=== PATIENT | male | born 1950 | race Caucasian/White ===

== ENCOUNTER 2018-01-14 16:29 | Emergency (ER) | payer OTHER ==
--- NOTE | 2018-01-14 17:49 | RAD ---
RIGHT SHOULDER: THREE VIEWS 01/14/18 HISTORY: Right shoulder and arm pain. Injury to right arm with pain. Mild degenerative change at the glenohumeral joint. Mild degenerative changes at the AC joint. No fra cture or dislocation identified. IMPRESSION: No acute abnormality identified. POS: [facility]
[2018-01-14] MEDS ORDERED: Ketorolac Tromethamine 60 MG/2 ML VIAL ONE (18:26)
== END 2018-01-14 19:04 | disposition home or self-care (01) ==
LOC: ERS 16:29
DX: M25.511 Pain in right shoulder (principal); I25.2 Old myocardial infarction; I10 Essential (primary) hypertension; E11.40 Type 2 diabetes mellitus with diabetic neuropathy, unspecified; F43.10 Post-traumatic stress disorder, unspecified; F17.210 Nicotine dependence, cigarettes, uncomplicated; Z86.73 Personal history of transient ischemic attack (TIA), and cerebral infarction without residual deficits
CPT/HCPCS: 96372; J1885

== ENCOUNTER 2018-12-14 07:36 | Outpatient (CLI) | payer OTHER ==
--- NOTE | 2018-12-14 09:15 | CT ---
CT THORAX WITHOUT IV CONTRAST: INDICATIONS: Personal history of smoking for 50+ years. History of colon cancer, appendectomy, colon resection, r otator cuff repair, left knee surgery, and left inguinal umbilical hernia repair. COMPARISON: Prior CT thorax with contrast, dated 08/30/2015, from the [facility]. TECHNIQUE: CT with low dose lung cancer screening protocol. FINDINGS: No suspicious pulmonary nodule is evident. There is a calcified granuloma in the left lower lobe, as well as within the left upper lobe. There are coronary artery and thoracic aortic calcifications. There is a stable 1.5 cm left adrenal adenoma. There is stable posttraumatic deformity involving the left chest wall. There is scattered degenerati ve and osteoarthritic change. IMPRESSION: 1. Lung-RADS category 1-Negative. No suspicious pulmonary nodule is evident. Recommend routine kimi ual low dose lung cancer screening CT in one year. 2. Category S-Stable findings of prior granulomatous disease. Posttraumatic deformity of the left c hest wall. Stable left adrenal adenoma. POS: [facility]
== END 2018-12-14 07:37 | disposition home or self-care (01) ==
LOC: CT 07:36
DX: Z72.0 Tobacco use (principal)
CPT/HCPCS: G0297

== ENCOUNTER 2019-01-18 14:52 | Emergency (ER) | payer OTHER, SELFPAY ==
--- NOTE | 2019-01-18 16:40 | RAD ---
RADIOGRAPH CHEST 2 VIEWS: 01/18/19 HISTORY: 68-year-old male with chest pain. FINDINGS: The thoracic aorta is tortuous and ectatic. There is no evidence of air space density, pneumothorax, or pulmonary edema. There is no cardiomegaly or pleural effusion. Multiple old left rib fractures. No major interval change since 12/01/18. IMPRESSION: 1) No acute cardiopulmonary findings. 2) Ectasia of thoracic aorta. 3) Numerous old, significantly displaced, traumatic, left rib fracture deformities. jn [] POS: [facility]
--- NOTE | 2019-01-21 15:14 | EKG ---
Test Reason : CP Blood Pressure : / mmHG Vent. Rate : 076 BPM Atrial Rate : 076 BPM P-R Int : 140 ms QRS Dur : 094 ms QT Int : 392 ms P-R-T Axes : 038 020 -08 degrees QTc Int : 441 ms Normal sinus rhythm Nonspecific ST abnormality Abnormal ECG Confirmed by HORACIO NAYLOR ([id number]), editor producer MICAELA PASTOR ([id number]) on 01/21/2019 3:13:28 PM Referred By: Confirmed By:HORACIO NAYLOR
== END 2019-01-18 16:50 | disposition home or self-care (01) ==
LOC: ERS 14:52
DX: R07.81 Pleurodynia (principal); R05 Cough; I25.10 Atherosclerotic heart disease of native coronary artery without angina pectoris; E11.9 Type 2 diabetes mellitus without complications; I10 Essential (primary) hypertension; F43.10 Post-traumatic stress disorder, unspecified; F17.210 Nicotine dependence, cigarettes, uncomplicated; Z79.899 Other long term (current) drug therapy; Z79.84 Long term (current) use of oral hypoglycemic drugs
CPT/HCPCS: 71046; 93005

== ENCOUNTER 2019-03-04 11:47 | Inpatient (IN) | payer OTHER, MEDICARE ==
--- NOTE | 2019-03-04 12:24 | CT ---
EXAM: CT brain without contrast HISTORY: Severe headache status post TPA COMPARISON: 03/04/2019 TECHNIQUE: Multiple contiguous axial images were obtained and a CT of the brain without contrast. FINDINGS: There are scattered hypodensities in the subcortical and periventricular white matter consi stent with small vessel ischemic disease. There is no evidence of hydrocephalus, intracranial hemorrhage, or extra-axial fluid collection. The calvarium and overlying soft tissues are unremarkable. The visualized paranasal sinuses and masto id air cells are well aerated. IMPRESSION: No evidence of acute intracranial abnormality
[2019-03-04] MEDS ORDERED: Acetaminophen 500 MG TAB ONE (12:32)
--- NOTE | 2019-03-04 12:34 | RAD ---
EXAM: Single view of the chest HISTORY: Altered mental status COMPARISON: 02/11/2015 FINDINGS: Single view of the chest shows a normal sized cardiomediastinal silhouette. Increased inte rstitial lung markings are present. There is no evidence of consolidation, mass, or pleural effusion. Degenerative changes are seen in the spine. IMPRESSION: No evidence of acute cardiopulmonary disease
[2019-03-04 13:06] LABS: Acetaminophen Less than 6.0 mcg/mL (10.0-30.0); Alcohol Less than 10 mg/dL (Less than 10); CK (CPK) 87 U/L (30-200); Lipase 136 U/L (8-78); Salicylate Less than 8.0 mg/dL (15.0-30.0)
[2019-03-04] MEDS ORDERED: Insulin Regular 300 UNITS/3 ML VIAL SC PRN (13:23)
[2019-03-04] MEDS ORDERED: Labetalol HCl 100 MG/20 ML VIAL SLOW IVP PRN (13:23)
[2019-03-04] MEDS ORDERED: Bisacodyl 5 MG TAB PO PRN (13:23)
[2019-03-04] MEDS ORDERED: niCARdipine 25 MG in Sodium Chloride 0.9% 250 ML 250 ML IVPB PRN (13:23)
[2019-03-04] MEDS ORDERED: Communication Order-Pharmacy FS ONE (13:23)
[2019-03-04] MEDS ORDERED: Acetaminophen 325 MG TAB PO PRN (13:23)
[2019-03-04] MEDS ORDERED: Ondansetron PF 4 MG/2 ML Vial IVP PRN (14:10)
[2019-03-04] MEDS ORDERED: Ondansetron ODT 4 MG TAB SL PRN (14:10)
[2019-03-04] MEDS ORDERED: Sodium Chloride 0.9% 1,000 ML IV SCH (14:15)
--- NOTE | 2019-03-04 15:28 | HP ---
PRIMARY CARE PROVIDER: Dr. Leyda Ayala at [facility] in [place]. CHIEF COMPLAINT: Weakness. HISTORY OF PRESENT ILLNESS: Mr. Taylor is a pleasant 68-year-old gentleman, who was seen at [facility] following transfer from [facility]. He reports that he was at work around 9:00 a.m. today when he had upper body spasms. He felt like he was "feeling in and out." He also reports weakness in his right foot and right leg. The weakness was on and off and had resolved by the time I saw him. He also reports right-sided headache, sharp, 8/10, nonradiating, not accompanied by nausea, no known aggravating or relieving factors. The patient was airlifted to [facility]. On the way to the emergency room from the critical access hospital, he reportedly had upper body spasms. He describes that the spasms were exactly like the one that he had earlier today at [place]. REVIEW OF SYSTEMS: All other systems were reviewed and found to be negative. PAST MEDICAL HISTORY: Coronary artery disease, diabetes mellitus type 2, hypertension, colon cancer, and CVA x4. PAST SURGICAL HISTORY: Appendectomy, hernia repair, left knee surgery, right rotator cuff surgery, colon cancer surgery. PAST PSYCHIATRIC HISTORY: PTSD. SOCIAL HISTORY: The patient reports marijuana use. He smokes one pack of cigarettes a day. He denies alcohol use. FAMILY HISTORY: No family history of cerebrovascular accident. CODE STATUS: I discussed his code status. He is full code. Surrogate decision maker is his . ALLERGIES: BENADRYL, CIPROFLOXACIN, AND SULFA. CURRENT MEDICATIONS: 1. Pravastatin 80 mg daily. 2. Citalopram 40 mg daily. 3. Plavix 75 mg daily. 4. Doxepin 50 mg daily. 5. Hydrochlorothiazide 25 mg daily. 6. Lorazepam 2 mg 2 times a day. 7. Metformin 1000 mg 2 times a day. 8. Naproxen 375 mg 2 times a day. PHYSICAL EXAMINATION: GENERAL: On examination, Mr. Taylor is awake and alert, not in acute distress. VITAL SIGNS: Blood pressure is 120/74, pulse 62, respiratory rate 14, and oxygen saturation 97% on room air. He is afebrile. EYES: No scleral icterus, no conjunctival pallor. ENT: Moist mucosal membranes. No oropharyngeal erythema or exudates. NECK: Supple, nontender, bowel sounds are heard. RESPIRATORY: Accessory muscles of breathing are not active. Chest wall movements are symmetric bilaterally. Lungs are clear to auscultation without wheeze, rhonchi, or crepitations. CARDIOVASCULAR: S1 and S2 are heard, regular. Peripheral pulses palpable. ABDOMEN: Soft, nontender, bowel sounds are heard. NEUROLOGIC: Cranial nerves 2 through 12 are intact. There are no focal motor or sensory deficits. Power is 5/5 in all 4 extremities. Deep tendon reflexes 2+, plantars are downgoing bilaterally. MUSCULOSKELETAL: Power is 5/5 in all 4 extremities. SKIN: No rashes or subcutaneous nodules. LYMPHATIC: No cervical lymphadenopathy. PSYCHIATRIC: Normal mood, normal affect, the patient is oriented to person, place, and time. LABORATORY DATA: Mr. Taylor's labs and investigations were reviewed. I reviewed his electrocardiogram, which shows normal sinus rhythm, no ST changes to suggest an acute coronary syndrome. Reviewed his chest x-ray, which does not show any pulmonary infiltrates. He had noncontrast CT scan of the brain, which did not show any evidence of acute intracranial abnormality. CT [place] angiography with contrast did not show any evidence of hemodynamically significant stenosis of either internal carotid artery. He also had normal intracranial circulation. Urine toxicology screen was positive for cannabinoids. He has leukocytosis with 11, 600 white cells, of which 66% are neutrophils, normal hemoglobin, normal platelet count, INR 1.0, unremarkable comprehensive metabolic profile with a creatinine of 0.86. ASSESSMENT AND PLAN: Mr. Taylor is a pleasant 68-year-old gentleman, who was seen at [facility] on March 04, 2019. His problem list includes: 1. Acute ischemic stroke: Mr. Taylor is presenting with acute ischemic stroke. He has received tPA at [place]. He will be admitted to the hospital here for further management. He will be admitted to CCU and Neurology Service will be consulted. Post tPA protocol will be followed. He will have a repeat CT of the brain as well as MRI of the brain. We will also obtain 2D echocardiogram. He already had CT angiogram of the neck at [place]. 2. Diabetes mellitus type 2: We will start the patient on Accu-Cheks and insulin sliding scale. 3. Coronary artery disease: This appears to be stable at this time. He denies any chest pain. 4. Hypertension: We will monitor vital signs and titrate antihypertensives as needed. 5. Tobacco abuse: The patient has been counseled regarding tobacco cessation. Many thanks for allowing me to participate in your patient's care. Please feel free to contact me with any questions or concerns. Job ID: [id number] [id number]
[2019-03-04] MEDS: Nicotine 21 MG PATCH TD SCH (15:33)
[2019-03-04 15:47] VITALS: BMI 25.1
[2019-03-04] MEDS: Morphine 4 MG/ML VIAL SLOW IVP PRN ×2 (16:50→21:01)
--- NOTE | 2019-03-04 17:40 | CON ---
DATE OF CONSULTATION: 03/04/2019 SERVICE: Pulmonary Medicine. REASON FOR CONSULTATION: ICU patient. HISTORY OF PRESENT ILLNESS: The patient is a 68-year-old white male with past medical history significant for [address], he really does not have much in the way of debility. He indicates that the only issue that he has is that sometimes he has some lack of flexibility in his biceps muscles making it difficult for him to extend his arms. That being said, he had an abrupt onset of right arm and leg weakness with some lack of feeling in the right side of his face. He presented to the emergency department. A CT of the head was performed, which did not demonstrate any significant abnormalities. He subsequently got a dose of tPA. He has been tucked into the ICU. At this point, he has near resolution in all neurologic symptoms. This was an abrupt onset of symptoms. He has no shortness of breath, chest pain, fevers, chills, nausea, or vomiting that precipitated these events. He did have a little bit of a headache that started at 11 this morning. PAST MEDICAL HISTORY: 1. Coronary artery disease. 2. Type 2 diabetes mellitus. 3. Hypertension. 4. Colon cancer. 5. History of CVA x4. 6. Obstructive sleep apnea, not able to tolerate noninvasive therapy, currently using oxygen only at night. PAST SURGICAL HISTORY: 1. Appendectomy. 2. Herniorrhaphy. 3. Left knee surgery. 4. Right rotator cuff surgery. 5. Colon cancer surgery. SOCIAL HISTORY: He uses marijuana. He smokes a pack of cigarettes on a daily basis and has greater than 40 pack-year history of smoking. Denies any alcohol or illicit drug use. He has no exposure to chemicals, dust, asbestos, or tuberculosis. FAMILY HISTORY: Noncontributory. ALLERGIES: BENADRYL, CIPRO, AND SULFA. MEDICATIONS: List of his inpatient medications was reviewed. No specific updates were made at this time. REVIEW OF SYSTEMS: General, head, ears, eyes, nose, throat, cardiovascular, respiratory, GI, , musculoskeletal, neurologic, and skin is negative except as mentioned in the HPI. PHYSICAL EXAMINATION: VITAL SIGNS: Afebrile, pulse 58, blood pressure 141/80, respirations 16, and saturation 96% on room air. GENERAL: The patient is awake and alert, in no apparent distress. LUNGS: Good air entry. There is a prolonged expiratory phase. That being said, I do not appreciate any rhonchi or crackles. Wheezing is minimal. HEART: Normal rate and regular. ABDOMEN: Soft, nontender, and nondistended. Bowel sounds are positive. MUSCULOSKELETAL: No cyanosis or clubbing. No pitting in the bilateral lower extremities. NEUROLOGIC: Grossly nonfocal. LABORATORY DATA: WBC 11.6, hemoglobin 14.8, and platelets 349,000. INR 1.0. Comprehensive metabolic profile is unremarkable. He has negative troponin x2. CK is normal. Ammonia is normal. Lipase is less than twice the upper limits of normal. TSH is normal and prolactin is also normal. Salicylates, acetaminophen, plasma alcohol are all unremarkable. IMAGING STUDIES: CT of the brain demonstrates no acute intracranial abnormality. Chest x-ray demonstrates no acute cardiopulmonary abnormality. CT [place] demonstrates no obstructive lesions. ASSESSMENT: 1. Cerebrovascular accident, possible, status post tPA. 2. Obstructive sleep apnea, previously not able to tolerate noninvasive therapy. 3. Type 2 diabetes mellitus. DISCUSSION AND PLAN: We will watch the patient in the ICU closely with frequent neurologic checks. If he stable from a neurologic perspective, he will be ready for transition out of the ICU to the telemetry or to the stroke unit in the morning. He is being monitored on telemetry. I will follow in this location, but when he leaves the ICU, he will have no further requirements for inpatient Pulmonary Critical Care opinion, and I will sign off. Job ID: [id number]
[2019-03-04] MEDS ORDERED: Atorvastatin Calcium 40 MG TAB PO SCH (21:00)
--- NOTE | 2019-03-04 21:24 | CON ---
DATE OF CONSULTATION: 03/04/2019 CHIEF COMPLAINT: The patient gave us medical history. The patient was in his usual state of health and he was at work around 9:00 am yesterday and he had right-sided facial, arm, and leg weakness and it was on and off and currently, he has improved significantly. The patient reports he had slurred speech. He was a bit disoriented. Even now, he has cold flashes and hot flashes. PREVIOUS MEDICAL HISTORY: Positive for coronary artery disease, diabetes, hypertension, colon cancer in 2010. PAST SURGICAL HISTORY: Appendectomy, hernia repair, left knee surgery, right rotator cuff surgery, colon cancer surgery. PAST PSYCHIATRIC HISTORY: Positive for PTSD. SOCIAL HISTORY: He does use marijuana. Smokes one pack per day. No alcohol. FAMILY HISTORY: Mother in her 70s, she had diabetes and CVA. Father at 69, he collapsed. Brother after [employer] exposure. One sister . He still has a brother and sister alive. He has no children. ALLERGIES: HE IS ALLERGIC TO BENADRYL, CIPRO, AND SULFA. MEDICATIONS: At home reviewed. He takes: 1. Pravastatin. 2. Citalopram. 3. Plavix. 4. Doxepin. 5. Hydrochlorothiazide. 6. Lorazepam. 7. Metformin. 8. Naproxen. REVIEW OF SYSTEMS: PULMONARY: Negative for cough or shortness of breath. GI: Negative for nausea, vomiting, or diarrhea. NEUROLOGIC: Positive for right-sided weakness. DERMATOLOGICAL: Negative for any rash. HEMATOLOGIC: Negative for bleeding diathesis or anemia. ENDOCRINE: Positive for diabetes. LABORATORY WORKUP: White count is 11.6, RBC 5.13, hemoglobin 14.8, hematocrit 44.8, platelet count 349. Chemistries; potassium 3.7, sodium 140, chloride 100, bicarb 27, BUN 12, creatinine 0.86, prolactin 6.16. Urine is negative for leukocyte esterase. Urine tox is positive for opiates and cannabinoids. His MRI is currently pending. CT of the head showed no evidence of acute intracranial abnormalities. PHYSICAL EXAMINATION: VITAL SIGNS: Temperature 98, his blood pressure was 141/85, pulse is 64, respiratory rate 16. GENERAL APPEARANCE: Well-built, well-nourished man, who appears comfortable in bed. CHEST: Clear vesicular breathing. CARDIOVASCULAR: S1 and S2 heard. No murmurs. ABDOMEN: Soft. NEUROLOGICAL: Higher intellectual functions; normal orientation to time, place, and person. Cranial nerves; pupils 3 mm, reactive to light. Normal extraocular movements. No facial asymmetry noted. Normal sensation of face bilaterally. Tongue midline. No atrophy noted. Normal elevation of palate. Hearing normal. Motor; bulk normal, tone normal. Strength 5/5 throughout except in the right lower extremity. Lower extremity strength was 4/5. Muscle groups tested deltoid, biceps, triceps, wrist extension and flexion, finger extension and flexion and iliopsoas, hamstrings, quadriceps, ankle dorsiflexion, plantar flexion bilaterally. Deep tendon reflexes 1+ throughout. Cerebellar, normal [id number]. Sensory normal to touch. IMPRESSION: The patient is a 68-year-old gentleman who seems to have had a right-sided weakness yesterday when he was outside at work and his examination currently shows mild right lower extremity weakness, likely secondary to acute stroke. His stroke risk factors are coronary artery disease, diabetes, hypertension, and family history of stroke and at this time, likely diagnosis is most consistent with acute cerebrovascular accident. RECOMMENDATIONS: Please complete his MRI of the brain. Add full-dose aspirin to Plavix for now for protection and obtain echocardiogram and lipid profile as part of workup for stroke. His CT angiography was also reviewed and it was negative for any stenosis at this time, so I will follow up the patient with you. Job ID: [id number]
[2019-03-05] MEDS: Morphine 4 MG/ML VIAL SLOW IVP PRN ×2 (01:40→08:07)
--- NOTE | 2019-03-05 09:11 | CT ---
CT Brain WO Con HISTORY: CVA. The patient is status post TPA. COMPARISON: Prior day's exam. FINDINGS: There is generalized ventricular and sulcal prominence. Decreased attenuation to the perive ntricular white matter is noted with slightly asymmetric white matter changes on the left but not a definitive acute infarct. No hemorrhage or mass effect. Stable overall exam. The mastoid air cells are clear there is mild ethmoid air cell mucosal change. IMPRESSION: No acute intracranial abnormalities. Stable exam.
--- NOTE | 2019-03-05 09:44 | PRG ---
DATE OF SERVICE: 03/05/2019 SERVICE: Pulmonary Medicine. INTERVAL HISTORY: The patient is breathing comfortably. He has no complaints of chest pain, fevers, or chills. I find him in good spirits. He has a cigarette hanging out of his mouth. I offered to throw it away, but he declined. He does not have any obvious neurologic deficits at this point. If anything, he really looks excited to have visitors every time anybody comes into his room. PHYSICAL EXAMINATION: VITAL SIGNS: Afebrile, pulse 97, blood pressure 128/95, respirations 12, and saturation 93% on room air. GENERAL: The patient is awake and alert, in no apparent distress. LUNGS: Reduced air entry. No prolonged expiratory phase. No wheezing, rhonchi, or crackles are appreciated. HEART: Normal rate and regular. ABDOMEN: Soft, nontender, and nondistended. Bowel sounds are positive. MUSCULOSKELETAL: No cyanosis or clubbing. No pitting in the bilateral lower extremities. NEUROLOGIC: Grossly nonfocal. LABORATORY DATA: Blood sugar is 93 to 95. Prolactin level was normal. Toxicology was unremarkable. IMAGING STUDIES: CT of the brain demonstrates no intracranial bleeding. ASSESSMENT: 1. Cerebrovascular accident possible, status post tPA. 2. Obstructive sleep apnea, previously not able to tolerate noninvasive therapy. 3. Type 2 diabetes mellitus. DISCUSSION AND PLAN: At this point, the patient is stable for transition out of the ICU to the stroke unit. MRI of the head is scheduled for later today. This will help clarify whether or not he truly had a stroke. Either way, he has no further requirements for Pulmonary Critical Care opinion. When he leaves the ICU, I will sign off. Please call with additional questions or concerns. Job ID: [id number]
[2019-03-05] MEDS ORDERED: Lorazepam 2 MG/ML VIAL SLOW IVP PRN (10:15)
--- NOTE | 2019-03-05 10:46 | MRI ---
MRI Brain WO Con HISTORY: CVA. Right leg symptoms. Patient status post TPA. COMPARISON: Several prior examinations done yesterday and today. FINDINGS: Persistent motion artifact is a patient was consistently falling asleep during this exam. There is generalized ventricular and sulcal prominence. There are chronic appearing white matter liao ges. On the diffusion-weighted sequence I do not see any signs of an acute infarct. No hemorrhage or mass effect. There is moderate left maxillary sinus mucosal disease incidentally seen. IMPRESSION: Considerable motion artifact. No acute intracranial abnormalities.
--- NOTE | 2019-03-05 12:39 | PRG ---
DATE OF SERVICE: 03/05/2019 CHIEF COMPLAINT: Acute stroke. INTERVAL HISTORY: The patient reports he is doing well since yesterday and he has no current neurological complaints. CURRENT WORKUP: His MRI scan of the brain was negative for any acute intracranial abnormalities. PHYSICAL EXAMINATION: CONSTITUTIONAL: He appears comfortable, very happy to talk to us. VITAL SIGNS: Blood pressure was 145/80, pulse 62, respiratory rate 22. GENERAL APPEARANCE: Well-built, well-nourished man, appropriate in conversation. Normal orientation to time, place, person. NEUROLOGIC: Cranial nerves; normal extraocular movements and no facial asymmetry. Tongue midline. Motor examination; strength 5/5 throughout in both upper and lower extremities. Cerebellar; normal [id number] and [id number]. IMPRESSION: The patient is a 68-year-old man, who had right-sided weakness, which has completely resolved and he has stroke risk factors, which include hypertension, coronary artery disease, and diabetes. His current examination is within normal limits. His MRI is negative for any acute stroke and he is waiting full results of his echocardiogram. At this time, I would think this episode is more transient ischemic attack rather than cerebrovascular accident. RECOMMENDATIONS: Please continue present antiplatelet agents along with statin. The patient is okay for discharge from a neuro standpoint. Job ID: [id number]
[2019-03-05 12:48] LABS: #Basophils 0.1 thou/uL (0.0-0.2); #Eosinphils 0.3 thou/uL (0.0-0.7); #Lymphocytes 2.1 thou/uL (1.20-3.40); #Monocytes 0.5 thou/uL (0.11-0.59); #Neutrophils 4.7 thou/uL (1.40-6.50); %Basophils 1.2 % (0.0-1.0); %Eosinophils 4.3 % (0.0-10.0); %Lymphocytes 27.1 % (21.0-51.0); %Monocytes 6.2 % (0.0-10.0); %Neutrophils 61.1 % (42.0-75.0); Hemoglobin 15.4 g/dL (14.0-18.0); Mean Corpuscular HGB CONC 31.3 g/dL (32.0-36.0); Mean Corpuscular Volume 92.5 fL (78.0-98.0); Mean Platelet Volume 6.6 fL (7.4-10.4); Platelet Count 337 thou/uL (130-400); RBC Distribution Width 13.3 % (11.5-14.5); White Blood Cell (WBC) Count 7.7 thou/uL (4.8-10.8)
[2019-03-05 13:09] LABS: Anion Gap 13 mmol/L (10-20); BUN (Urea Nitrogen) 8 mg/dL (8.4-25.7); Calc. Creatinine Clearance 103 mL/min (70-130); Calcium 9.7 mg/dL (7.8-10.44); Carbon Dioxide 27 mmol/L (23-31); Cardiac Risk 2.8 (Less than 4.5); Chloride 102 mmol/L (98-107); Cholesterol 122 mg/dl (< 200 Desired); Estimated GFR-MDRD Greater than 90; Glucose 94 mg/dL (80-115); HDL Cholesterol 43 mg/dL (>60 Neg Risk); LDL Cholesterol, Calculated 53 mg/dL; Potassium 4.3 mmol/L (3.5-5.1); Sodium 138 mmol/L (136-145); Triglycerides 131 mg/dL (Less than 150)
[2019-03-05] MEDS: Nicotine 21 MG PATCH TD SCH (14:11)
[2019-03-05 16:24] VITALS: BP 130/88; TEMP 98.4
--- NOTE | 2019-03-05 17:06 | PDOC.PN ---
- Subjective Encounter Start Date: 03/05/19 Encounter Start Time: 10:40 Pt seen for followup re; TIA. Feels well, no complaints. - Objective Resuscitation Status - Order Detail: 03/04/19 13:23 Resuscitation Status Routine Resuscitation Status: FULL: Full Resuscitation Discussed with: patient ALEX Reviewed: Yes Vital Signs & Weight: Vital Signs (12 hours) Temp Pulse Pulse Resp BP BP Pulse Ox 03/05/19 14:30 98.4 F 59 L 18 130/88 94 L 03/05/19 14:15 65 132/90 03/05/19 12:00 98.1 F 03/05/19 08:00 98.4 F 97 Weight Admit Weight 170 lb 6.677 oz Weight 170 lb 6.677 oz Most Recent Monitor Data Heart Rate from ECG 58 NIBP 164/126 NIBP BP-Mean 138 Respiration from ECG 14 SpO2 97 I&O: 03/04/19 03/05/19 03/06/19 06:59 06:59 06:59 Intake Total 1308 500 Output Total 2850 1250 Balance -1542 -750 Result Diagrams: 03/05/19 12:36 03/05/19 12:36 Additional Labs: Accuchecks 03/05/19 03/05/19 03/05/19 12:53 04:19 00:17 POC Glucose 107 93 95 03/04/19 03/04/19 20:16 16:32 POC Glucose 115 H 124 H EKG Reviewed by me: Yes (Tele: NSR) Phys Exam - Physical Examination Constitutional: NAD HEENT: moist MMs Neck: supple Respiratory: clear to auscultation bilateral Cardiovascular: RRR Gastrointestinal: soft Neurological: moves all 4 limbs Psychiatric: normal affect Dx/Plan (1) TIA (transient ischemic attack) Code(s): G45.9 - TRANSIENT CEREBRAL ISCHEMIC ATTACK, UNSPECIFIED Status: Acute Comment: will continue Plavix and statin (2) CAD (coronary artery disease) Code(s): I25.10 - ATHSCL HEART DISEASE OF [place] CORONARY ARTERY W/O ANG PCTRS Status: Chronic Comment: stable (3) Diabetes type 2, controlled Code(s): E11.9 - TYPE 2 DIABETES MELLITUS WITHOUT COMPLICATIONS Status: Chronic Comment: controlled (4) Dyslipidemia Code(s): E78.5 - HYPERLIPIDEMIA, UNSPECIFIED Status: Chronic Comment: continue statin - Plan out of bed/ambulate * . Likely home later today Review of Systems - Review of Systems Cardiovascular: other. negative: chest pain, palpitations, orthopnea, paroxysmal nocturnal dyspnea, edema, light headedness Gastrointestinal: negative: Nausea, Vomiting, Abdominal Pain, Diarrhea, Constipation, Melena, Hematochezia Neurological: negative: Weakness, Numbness, Incoordination, Change in Speech, Confusion, Seizures - Medications/Allergies Allergies/Adverse Reactions: Allergies Allergy/AdvReac Type Severity Reaction Status Date / Time Sulfa (Sulfonamide Allergy Severe Anaphylaxis Verified 11/18/16 15:18 Antibiotics) ciprofloxacin [From Cipro] Allergy Intermediate Anaphylaxis Verified 11/18/16 15 :18 ciprofloxacin HCl Allergy Intermediate Anaphylaxis Verified 11/18/16 15:18 [From Cipro] diphenhydramine HCl Allergy Verified 11/18/16 21:08 [From Benadryl] Medications: Current Medications Acetaminophen (Tylenol) 650 mg PO Q6H PRN PRN Reason: Headache/Fever/Mild Pain (1-3) Atorvastatin Calcium (Lipitor) 80 mg PO HS [facility] Last Admin: 03/04/19 20:15 Dose: 80 mg Bisacodyl (Dulcolax) 10 mg PO DAILYPRN PRN PRN Reason: Constipation Nicardipine HCl 25 mg/ Sodium (Chloride) 260 mls @ 0 mls/hr IVPB INF PRN; Protocol PRN Reason: SBP > 180 or DBP > 105 Insulin Human Regular (Humulin R) 0 units SC .MODERATE SLIDING SC PRN PRN Reason: Moderate Correctional Scale Labetalol HCl (Normodyne) 10 mg SLOW IVP Q2H PRN PRN Reason: SBP > 180 or DBP > 105 Lorazepam (Ativan) 1 mg SLOW IVP ONE PRN PRN Reason: PRIOR TO MRI Stop: 03/05/19 23:59 Last Admin: 03/05/19 09:53 Dose: 1 mg Morphine Sulfate (Morphine) 4 mg SLOW IVP Q4H PRN PRN Reason: Pain Last Admin: 03/05/19 08:07 Dose: 4 mg Nicotine (Nicoderm Patch) 21 mg TD Q24HR KIESHA Last Admin: 03/05/19 14:11 Dose: Not Given Sodium Chloride (Flush - Normal Saline) 10 ml IVF Q12HR [facility] Last Admin: 03/05/19 08:08 Dose: 10 ml Sodium Chloride (Flush - Normal Saline) 10 ml IVF PRN PRN PRN Reason: Saline Flush
[2019-03-05] MEDS ORDERED: Lorazepam 1 MG TAB PO SCH (17:15)
[2019-03-05] MEDS ORDERED: Zolpidem Tartrate 5 MG TAB PO PRN (17:25)
--- NOTE | 2019-03-05 17:38 | DIS ---
DATE OF ADMISSION: 03/04/2019 DATE OF DISCHARGE: 03/05/2019 PRIMARY CARE PROVIDER: Dr. Leyda Ayala at [facility] in [place]. DISCHARGE DIAGNOSIS: Transient ischemic attack. CONDITION ON DISCHARGE: Condition of patient on the day of discharge: Stable. I assessed Mr. Taylor on the day of discharge. Please refer to my daily progress note for further details regarding this ruzi-or-gctn encounter. DISCHARGE MEDICATIONS: No change was made to his pre-admission home medications as dictated on my history and physical note dated March 04, 2019. CONSULTATIONS: Consultations during this hospitalization: Neurology, Dr. Tirado and Pulmonary and Critical Care Medicine, Dr. Vaughn. HOSPITAL COURSE: Mr. Taylor is a pleasant 68-year-old gentleman, who was admitted to [facility] on March 04, 2019 for suspected stroke. He received tPA. MRI of the brain had motion artifact and did not show any acute intracranial abnormality. He was seen by tele Neurology and Pulmonary and Critical Care Medicine Services and he was also seen by Physical Therapy and Speech Therapy services. He has been advised to stop marijuana and tobacco use. He is being discharged home in a stable condition. He was already on Plavix and statin at the time of admission, and no change was made to these medications. At the time of this dictation, 2D echocardiogram report was pending. He is advised to follow up with his primary care provider in 3 days time for 2D echocardiogram report. Many thanks for allowing me to participate in your patient's care. Please feel free to contact me with any questions or concerns. Fasting lipid profile showed triglycerides 131, cholesterol 122, LDL cholesterol 53, and HDL cholesterol 43. FOLLOWUP: Followup appointments: The patient is advised to follow up with primary care provider in 3 days time. DISCHARGE DESTINATION: Home. TIME SPENT: Total amount of time spent coordinating this discharge: 31 minutes. Job ID: [id number]
[2019-03-05] MEDS ORDERED: Doxepin HCl 25 MG CAP PO SCH (21:00)
[2019-03-05] MEDS ORDERED: Calcium Carbonate 500 MG TAB PO SCH (21:00)
[2019-03-05] MEDS ORDERED: tiZANidine HCl 4 MG TAB PO SCH (21:00)
[2019-03-05] MEDS ORDERED: Atorvastatin Calcium 40 MG TAB PO SCH (21:00)
[2019-03-05] MEDS ORDERED: Magnesium Oxide 400 MG TAB PO SCH (21:00)
[2019-03-06] MEDS ORDERED: metFORMIN 500 MG TAB PO SCH (08:00)
[2019-03-06] MEDS ORDERED: Clopidogrel Bisulfate 75 MG TAB PO SCH (09:00)
[2019-03-06] MEDS ORDERED: Fish Oil 1,000 MG CAP PO SCH (09:00)
[2019-03-06] MEDS ORDERED: HYDROcodone/Acetaminophen 10/325 mg Tablet PO PRN (09:00)
[2019-03-06] MEDS ORDERED: Docusate 100 MG CAP PO SCH (09:00)
[2019-03-06] MEDS ORDERED: Hydrochlorothiazide 25 MG TAB PO SCH (09:00)
[2019-03-06] MEDS ORDERED: Citalopram 20 MG TAB PO SCH (09:00)
== END 2019-03-05 19:25 | disposition home or self-care (01) | DRG 69 ==
LOC: ERS 11:47 → CCU 12:48 → 2SE 03-05 14:30
PROVIDERS: ADMIT Internal Medicine; ATTEND Internal Medicine
DX: G45.9 Transient cerebral ischemic attack, unspecified (principal); I25.10 Atherosclerotic heart disease of native coronary artery without angina pectoris; E11.9 Type 2 diabetes mellitus without complications; I10 Essential (primary) hypertension; F17.210 Nicotine dependence, cigarettes, uncomplicated; G47.33 Obstructive sleep apnea (adult) (pediatric); F12.90 Cannabis use, unspecified, uncomplicated; Z90.49 Acquired absence of other specified parts of digestive tract; Z92.82 Status post administration of tPA (rtPA) in a different facility within the last 24 hours prior to admission to current facility; Z79.84 Long term (current) use of oral hypoglycemic drugs; Z79.899 Other long term (current) drug therapy; Z88.2 Allergy status to sulfonamides; Z88.1 Allergy status to other antibiotic agents; Z88.8 Allergy status to other drugs, medicaments and biological substances; Z99.81 Dependence on supplemental oxygen
CPT/HCPCS: 36415; 36416; 70450; 70551; 71045; 80048; 80061; 80307; 82140; 82550; 83690; 84146; 84443; 85025; 93005; 93306; J2060; J2270; J7050

== ENCOUNTER 2019-05-22 14:08 | Emergency (ER) | payer OTHER ==
[2019-05-22 14:32] LABS: Bilirubin Negative (Negative); Blood, Urine Negative (Negative); Clarity Clear (Clear); Glucose, Urine (Dipstick) Normal (Negative); Leukocyte Negative Leu/uL (Negative); Nitrite Negative (Negative); Protein, Urine (Dipstick) Negative (Neg-Trace); Urobilinogen Normal mg/dL (Less than 2)
[2019-05-22] MEDS ORDERED: Ketorolac Tromethamine 30 MG/ML VIAL ONE (15:34)
== END 2019-05-22 16:45 | disposition home or self-care (01) ==
LOC: ERS 14:08
DX: M54.5 Low back pain (principal); I25.10 Atherosclerotic heart disease of native coronary artery without angina pectoris; E11.9 Type 2 diabetes mellitus without complications; I10 Essential (primary) hypertension; F43.10 Post-traumatic stress disorder, unspecified; F17.210 Nicotine dependence, cigarettes, uncomplicated; Z79.899 Other long term (current) drug therapy; Z79.84 Long term (current) use of oral hypoglycemic drugs; Z86.73 Personal history of transient ischemic attack (TIA), and cerebral infarction without residual deficits
CPT/HCPCS: 81003; 96372; 99283; J1885

== ENCOUNTER 2020-04-19 12:58 | Observation (INO) | payer OTHER ==
[2020-04-19 14:22] LABS: Anion Gap 14 mmol/L (10-20); BUN (Urea Nitrogen) 11 mg/dL (8.4-25.7); Calc. Creatinine Clearance 0 mL/min (70-130); Calcium 9.4 mg/dL (7.8-10.44); Carbon Dioxide 29 mmol/L (23-31); Chloride 95 mmol/L (98-107); Estimated GFR-MDRD 89; Glucose 93 mg/dL (80-115); Potassium 4.4 mmol/L (3.5-5.1); Sodium 134 mmol/L (136-145)
[2020-04-19] MEDS ORDERED: Metoclopramide HCl 10 MG/2 ML VIAL ONE (15:03)
--- NOTE | 2020-04-19 15:24 | PDOC.FPRHP ---
- History of Present Illness Chief Complaint: Hypoglycemia and L sided weakness History of Present Illness: Patient is a 69 yo male who presented to the ED via transfer from [place] for L sided weakness. Patient was seen in [place] with hypoglycemia earlier today with blood sugar was 40 per EMS. Patient was given D10 en route to hospital and an amp of D50 and his blood sugar came up and has been sustained @100 or greater. Patient then was complaining of some dizziness, headache, and left-sided weakness. Patient had an NIH SS of 5 at [place]. He was transferred here for rule out of CVA/TIA. Patient does report that he has a history of multiple strokes but denies that he has had any previous long- lasting deficits. He does report that he has L leg weakness/difficulty because of knee replacement. Patient was not given TPA at [place]. ED Course: Patient showed up to [place] ED with glucose of 40. He was given 1 amp of D50 and BG went to 100. Patient then reported L sided weakness. He got imaging at [facility]SH and was transferred to [facility]. At [facility] patient was given 10 mg Reglan. - Allergies/Adverse Reactions Allergies Allergy/AdvReac Type Severity Reaction Status Date / Time Sulfa (Sulfonamide Allergy Severe Anaphylaxis Verified 11/03/19 17:20 Antibiotics) ciprofloxacin [From Cipro] Allergy Intermediate Anaphylaxis Verified 11/03/19 17 :20 ciprofloxacin HCl Allergy Intermediate Anaphylaxis Verified 11/03/19 17:20 [From Cipro] diphenhydramine HCl Allergy Verified 11/03/19 17:20 [From Benadryl] - Home Medications Medication Instructions Recorded Confirmed Type Atorvastatin Calcium 40 mg PO HS 11/10/16 03/04/19 History Calcium Carbonate [Oscal-500] 500 mg PO BID 11/10/16 03/04/19 History Citalopram Hydrobromide 40 mg PO QAM 11/10/16 03/04/19 History [Citalopram HBr] Clopidogrel Bisulfate [Plavix] 75 mg PO DAILY 11/10/16 03/04/19 History Docusate Sodium 100 mg PO DAILY 11/10/16 03/04/19 History Doxepin HCl 25 mg PO HS 11/10/16 03/04/19 History HYDROcodone/Acetaminophen [[place] 1 each PO ASDIR PRN 11/10/16 03/04/19 History 10-325 Tablet] Hydrochlorothiazide 25 mg PO QAM 11/10/16 03/04/19 History LORazepam [Lorazepam] 1 mg PO ASDIR 11/10/16 03/04/19 History Magnesium Hydroxide [Milk of 5 - 10 ml PO HS PRN 11/10/16 03/04/19 History Magnesia] Magnesium Oxide 400 mg PO HS 11/10/16 03/04/19 History [place]-3 Fatty Acids/Fish Oil [Fish 1 cap PO TID 11/10/16 03/04/19 History Oil 1,000 mg Capsule] Zolpidem Tartrate [Ambien] 10 mg PO HS PRN 11/10/16 03/04/19 History metFORMIN HCl 500 mg PO BID-WM 11/10/16 03/04/19 History tiZANidine HCl [Tizanidine HCl] 4 mg PO TID 11/10/16 03/04/19 History - History PMHx: CAD, HTN, HLD, Colon cancer s/p surgery, Anxiety, hx CVA, THC abuse, tobacco abuse, DMII PSHx: Colon cancer resection, hernia surgery FHx: noncontributory Social: Smokes MJ >1X/day, smokes 1ppd cigarettes, does not drink etoh - Review of Systems General: denies: fever/chills, weight/appetite/sleep changes Eyes: denies: eye pain, vision changes ENT: denies: nasal congestion, rhinorrhea Respiratory: denies: cough, shortness of breath Cardiovascular: denies: chest pain, palpitation Gastrointestinal: denies: nausea, vomiting, diarrhea, constipation Genitourinary: denies: incontinence, dysuria Skin: denies: rashes, lesions Musculoskeletal: reports: arthritis/arthralgias. denies: tenderness - Vital signs BP: 127/81, MAP: 96, Pulse: 65, Resp: 18 (Non-Labored), Temp: 98.4 (Oral), Pain : 8, O2 sat: 98 on (Room Air), Time: 04/19/2020 13:08. Wt 85.28 kg - Physical Exam Constitutional: NAD, awake, alert and oriented, well developed HEENT: normocephalic and atraumatic, PERRLA, EOMI, conjunctiva clear, no scleral icterus, grossly normal vision, grossly normal hearing, MMM Neck: supple, FROM Heart: RRR, normal S1/S2, no murmurs/rubs/gallops, pulses present, no edema Lungs: CTAB, no respiratory distress, good air movement, no rales/rhonchi, no wheezing, no retractions Abdomen: soft, non-tender, bowel sounds present, no masses/distention Musculoskeletal: normal structure, normal tone Neurological: CN II-XII intact -Neurological: Patient reported L sided deficits of sensation, LLE 3+/5 strength, all other extremities 5/5 strength Skin: no rash/lesions, capillary refill <2 seconds Heme/Lymphatic: no unusual bruising or bleeding, no purpura Psychiatric: normal mood and affect, good judgment and insight, intact recent and remote memory FMR H&P: Results - Labs Result Diagrams: 04/19/20 13:54 Lab results: Sodium 134 mmol/L (136-145) L 04/19/20 13:54 Potassium 4.4 mmol/L (3.5-5.1) 04/19/20 13:54 Chloride 95 mmol/L (98-107) L 04/19/20 13:54 Carbon Dioxide 29 mmol/L (23-31) 04/19/20 13:54 BUN 11 mg/dL (8.4-25.7) 04/19/20 13:54 Creatinine 0.85 mg/dL (0.7-1.3) 04/19/20 13:54 Glucose 93 mg/dL (80-115) 04/19/20 13:54 Calcium 9.4 mg/dL (7.8-10.44) 04/19/20 13:54 - EKG Interpretation EKG: NSR, no acute ischemic changes - Radiology Interpretation CT scan - head Status: report reviewed by me Additional comment: CTH no acute processes, CTA not read at this time FMR H&P: A/P - Plan CVA/TIA rule out - Patient with history of multiple strokes most recent 2018 - Deficits appear to be resolved, patient says he is at baseline, could be 2/2 hypoglycemia causing return of old stroke sx - CTH shows no acute processes - Consider neuro consult pending imaging results - Follow up on CTA - MRI brain - Lipid, A1c, TSH Hypoglycemia - suspect medications vs poor PO intake today CAD - home meds, med rec - Likely ASA, statin, Plavix THC abuse - Patient with no plans to stop smoking Tobacco abuse - Patient with no plans to stop HTN - home meds, med rec DM - SSI, hypoglycemic protocol History of colon cancer s/p surgery - Bowel regimen Code: full Diet: HH DVT ppx: lovenox Dispo: eLOS <48 hr, dc pending MRI FMR H&P: Upper Level - Pertinent history 69yo male [facility] patient with h/o DMII, CAD, HTN presented to [place] ED via EMS for hypoglycemia. States he woke up this morning at usual state of health, ate breakfast, went to work. Approx 1000 he began to feel nauseous, diaphoretic , and weak. EMS called and BG 40, given glucose and transported to [place]. Labs there unremarkable. He then endorsed Left sided weakness and sensory changes. CT Head and CTA neck/neck negative. Transferred to [facility] for further eval. At presentation, patient still endorses mild LLE weakness and complete left-sided sensory changes. Overall improved and does endorse some baseline left-sided weakness. Endoreses smoking THC daily, last night last use, smokes 1.5ppd, no EtOH. - Pertinent findings VSS, Heart/lungs/abd/HEENT WNL Neuro: CH II-XII intact, EOMI, PERRLA, decreased sensation to LLE and LUE as compared to right. 5/5 strength right. 4/5 strength LLE, 5/5 strength LUE. Normal cerebellar testing Trop neg, BNP neg, lytes stable, cbc WNL. UDS + THC and tricylics. - Plan Date/Time: 04/19/20 1522 I, Ernesto Friedman Md, have evaluated this patient and agree with findings/plan as outlined by graduate intern resident. Pertinent changes/additions are listed here. 69yo M with h/o HTN, CAD, DMII presents for hypoglycemia, concern for TIA vs CVA #TIA vs CVA - new onset weakness and sensory changes on left after hypoglycemic epidode this AM - CT and CTA Head and neck negative - MRI ordered - On lipid and antiplatelet, will order Lipid, TSH, A1C for risk stratification - PT consulted #Hypoglycemia - suspect medications, will await med rec #THC abuse - counseled, patient states he does not plan to quit PCP: [facility]: Lovenox Diet: HH IVF: SL Dispo: Admit to stroke obs for TIA r/o. MRI pending. Risk stratification. Anticipate discharge within 48hrs. Addendum - Attending - Attending Attestation Date/Time: 04/19/20 1630 I personally evaluated the patient and discussed the management with Dr. Kincaid/ [place]. I agree with the History, Examination, Assessment and Plan documented above with any addition or exceptions noted below. Patient here after transfer for initial hypoglycemia. Patient had normal breakfast this morning but then had episode of feeling "off" and found to be hypoglycemic by EMS. Transported to outside ER were normal glucose level attained. He was transferred here due to complaints of left sided sensation changes. He has history of CVA in the past. On exam, normal vital signs. Strength is grossly intact and symmetrical. He has subjective sensory changes in the L side of face and body. Labs overall stable from previous. Patient will be admitted for CVA r/o. MRI and labs. Consider that these symptoms could be leftover effects from profound hypoglycemia. Therapy consults. Obs status.
[2020-04-19] MEDS ORDERED: Ondansetron PF 4 MG/2 ML Vial IVP PRN (16:02)
[2020-04-19] MEDS ORDERED: Ondansetron ODT 4 MG TAB PO PRN (16:02)
[2020-04-19] MEDS ORDERED: Dextrose 5% in Water 1,000 ML IV PRN (16:02)
[2020-04-19] MEDS ORDERED: Acetaminophen 325 MG TAB PO PRN (16:02)
[2020-04-19] MEDS ORDERED: Nicotine 21 MG PATCH TD PRN (16:02)
[2020-04-19] MEDS ORDERED: Dextrose 50% Abboject 50 ML SYRINGE SLOW IVP PRN (16:02)
[2020-04-19] MEDS ORDERED: Calcium Carbonate 500 MG ChewTAB PO PRN (16:02)
[2020-04-19] MEDS ORDERED: Acetaminophen 650 MG Suppository PR PRN (16:02)
[2020-04-19] MEDS ORDERED: HumaLOG 300 UNITS/3 ML VIAL SC PRN (16:02)
[2020-04-19 17:23] VITALS: BMI 27.2
[2020-04-19] MEDS: HumaLOG 300 UNITS/3 ML VIAL SC PRN (18:07)
[2020-04-19] MEDS ORDERED: Zolpidem Tartrate 5 MG TAB PO PRN (19:54)
[2020-04-19] MEDS ORDERED: tiZANidine HCl 4 MG TAB PO PRN (19:54)
[2020-04-19] MEDS ORDERED: Lorazepam 1 MG TAB PO SCH (21:00)
[2020-04-19] MEDS ORDERED: Doxepin HCl 25 MG CAP PO SCH (21:00)
[2020-04-19] MEDS ORDERED: Atorvastatin Calcium 40 MG TAB PO SCH (21:00)
[2020-04-19] MEDS ORDERED: Ibuprofen 600 MG TAB PO PRN (21:23)
[2020-04-19] MEDS ORDERED: Metoclopramide 10 MG/10 ML UDCUP PO SCH (21:30)
[2020-04-19] MEDS ORDERED: Lactated Ringer's 1,000 ML IV SCH (21:30)
--- NOTE | 2020-04-20 05:03 | PDOC.FM ---
- Subjective Subjective: Patient reports no acute concerns at this time. Overnight patient had increased anxiety with "panic attacks". He received home medications which helped him calm down and sleep. - Objective MAR Reviewed: Yes Vital Signs & Weight: Vital Signs (12 hours) Temp Pulse Resp BP BP BP BP 04/20/20 03:20 97.9 F 59 L 12 114/80 04/19/20 23:20 97.9 F 60 14 111/52 L 04/19/20 20:59 04/19/20 20:56 16 117/83 04/19/20 20:01 98.0 F 64 18 117/79 04/19/20 17:20 97.6 F 65 17 114/70 120/85 126/78 Pulse Ox 04/20/20 03:20 95 04/19/20 23:20 95 04/19/20 20:59 95 04/19/20 20:56 91 L 04/19/20 20:01 96 04/19/20 17:20 97 Weight Weight 83.642 kg I&O: 04/18/20 04/19/20 04/20/20 06:59 06:59 06:59 Intake Total 600 Balance 600 Result Diagrams: 04/20/20 04:47 04/20/20 04:47 Phys Exam - Physical Examination Constitutional: NAD HEENT: moist MMs, sclera anicteric Respiratory: no wheezing, no rales, no rhonchi, clear to auscultation bilateral Cardiovascular: RRR, no significant murmur, no rub Gastrointestinal: soft, non-tender, no distention, positive bowel sounds Musculoskeletal: no edema, pulses present Neurological: moves all 4 limbs CN 2-12 intact, LLE 3+/5 strength, 5/5 in other limbs Dx/Plan - Plan Plan: CVA/TIA rule out - Patient with history of multiple strokes most recent 2018 - Deficits appear to be resolved, patient says he is at baseline, could be 2/2 hypoglycemia causing return of old stroke sx - CTH shows no acute processes, CTA preliminary read shows 50% R ICA stenosis, patent white [place] of [place], no acute vascular abnormalities - Consider neuro consult pending imaging results - MRI brain this AM Hypoglycemia - suspect medications vs poor PO intake as cause CAD - home meds THC abuse - Patient with no plans to stop smoking Tobacco abuse - Patient with no plans to stop HTN - home meds, med rec DM - SSI, hypoglycemic protocol History of colon cancer s/p surgery - Bowel regimen Code: full Diet: HH DVT ppx: lovenox Dispo: eLOS <48 hr, dc pending MRI Addendum - Attending - Attending Attestation Date/Time: 04/20/20 0709 I personally evaluated the patient and discussed the management with Dr. Kincaid. I agree with the History, Examination, Assessment and Plan documented above with any addition or exceptions noted below. Patient resting comfortably. Awaiting MRI. Glucose control improved. Further mgmt pending MRI result.
[2020-04-20 05:05] LABS: Hemoglobin 14.6 g/dL (14.0-18.0); Mean Corpuscular HGB CONC 31.9 g/dL (32.0-36.0); Mean Corpuscular Hemoglobin 29.2 pg (27.0-31.0); Mean Corpuscular Volume 91.4 fL (78.0-98.0); Mean Platelet Volume 6.7 fL (7.4-10.4); Platelet Count 325 thou/uL (130-400); RBC Distribution Width 13.5 % (11.5-14.5); White Blood Cell (WBC) Count 7.5 thou/uL (4.8-10.8)
[2020-04-20 05:22] LABS: Hemoglobin A1c 6.6 % (4.0-6.0)
[2020-04-20 05:31] LABS: Anion Gap 11 mmol/L (10-20); BUN (Urea Nitrogen) 10 mg/dL (8.4-25.7); Calc. Creatinine Clearance 99 mL/min (70-130); Calcium 8.9 mg/dL (7.8-10.44); Carbon Dioxide 30 mmol/L (23-31); Cardiac Risk 2.7 (Less than 4.5); Chloride 100 mmol/L (98-107); Cholesterol 109 mg/dl (< 200 Desired); Estimated GFR-MDRD Greater than 90; Glucose 125 mg/dL (80-115); HDL Cholesterol 41 mg/dL (>60 Neg Risk); LDL Cholesterol, Calculated 48 mg/dL; Potassium 4.2 mmol/L (3.5-5.1); Sodium 137 mmol/L (136-145); Triglycerides 102 mg/dL (Less than 150)
[2020-04-20] MEDS: HumaLOG 300 UNITS/3 ML VIAL SC PRN ×2 (06:30→10:04)
[2020-04-20] MEDS ORDERED: metFORMIN 500 MG TAB PO SCH (08:00)
[2020-04-20] MEDS ORDERED: Enoxaparin Sodium 40 MG/0.4 ML SYRINGE SC SCH (09:00)
[2020-04-20] MEDS ORDERED: Pregabalin 50 MG CAP PO SCH (09:00)
[2020-04-20] MEDS ORDERED: Fish Oil 1,000 MG CAP PO SCH (09:00)
[2020-04-20] MEDS ORDERED: Citalopram 20 MG TAB PO SCH (09:00)
[2020-04-20] MEDS ORDERED: Clopidogrel Bisulfate 75 MG TAB PO SCH (09:00)
[2020-04-20] MEDS ORDERED: Aspirin Chewable 81 MG TAB PO SCH (09:00)
[2020-04-20] MEDS ORDERED: Hydrochlorothiazide 25 MG TAB PO SCH (09:00)
[2020-04-20] MEDS ORDERED: Diazepam 2 MG TAB PO SCH (09:45)
--- NOTE | 2020-04-20 11:35 | MRI ---
MRI BRAIN WITHOUT CONTRAST: HISTORY: Left-sided weakness COMPARISON: 03/05/2019 CORRELATION: CT scan from 04/19/2020. FINDINGS: No restricted diffusion is seen. There are multiple foci of T2 prolongation in the periventricular wh ite matter, consistent with chronic small vessel ischemic disease. The ventricular size is appropriate and the basilar cisterns are patent. No evidence of acute infarct, hemorrhage, midline shift or abnormal extra-axial fluid collections is seen. There is mucosal disease in the paranasal sinuses. IMPRESSION: No evidence of acute intracranial process.
[2020-04-20] MEDS ORDERED: Lorazepam 1 MG TAB PO SCH (12:00)
[2020-04-20 12:29] VITALS: BP 130/78; TEMP 98.1
[2020-04-20 12:38] LABS: SARS-CoV-2 MS2 Positive; SARS-CoV-2 N Gene Negative; SARS-CoV-2 S Gene Negative; SARS-CoV-2 by NAA Not Detected (NotDetected); SARS-CoV-2 orf1ab Negative
[2020-04-20] MEDS ORDERED: Magnesium Oxide 400 MG TAB PO SCH (21:00)
--- NOTE | 2020-04-21 19:01 | DIS ---
DATE OF ADMISSION: 04/19/2020 DATE OF DISCHARGE: 04/20/2020 RESIDENT: Del Kincaid MD. ADMITTING ATTENDING: Guillermo Malave MD. DISCHARGE ATTENDING: Guillermo Malave MD. CONSULTS: None. PROCEDURES: CT of the head done at the outside hospital showed no acute intracranial process. CTA of the head and neck showed 50% stenosis of the right ICA. No other significant stenoses. MRI of the brain showed no findings of acute CVA. PRIMARY DIAGNOSIS: Hypoglycemia. SECONDARY DIAGNOSES: 1. Coronary artery disease. 2. THC abuse. 3. Tobacco abuse. 4. Hypertension. 5. Diabetes type 2. 6. History of colon cancer, status post resection. DISCHARGE MEDICATIONS: 1. Aspirin 81 mg p.o. daily. 2. Atorvastatin 80 mg p.o. at bedtime. 3. Calcium carbonate 500 mg p.o. b.i.d. 4. Citalopram 40 mg p.o. daily. 5. Plavix 75 mg p.o. daily. 6. Doxepin 50 mg p.o. at bedtime. 7. Hydrochlorothiazide 25 mg p.o. daily. 8. Lorazepam 1 mg p.o. as directed. 9. Magnesium oxide 400 mg p.o. at bedtime. 10. Metformin 500 mg p.o. b.i.d. 11. [place]-3 fatty acids one cap p.o. t.i.d. 12. Pregabalin 100 mg p.o. b.i.d. 13. Tizanidine 4 mg p.o. t.i.d. 14. Ambien 10 mg p.o. at bedtime. DISCONTINUED MEDICATIONS: None. HISTORY OF PRESENT ILLNESS/HOSPITAL COURSE: The patient is a 69-year-old male with past medical history of multiple CVAs, most recent being in 2019, 1st in 2010, CAD with GA in the , diabetes and hypertension, who presented to an outside hospital via EMS for hypoglycemia. The patient was at work around 9:30 a.m. began to feel weak, felt like he was going to pass out and had diaphoresis. He was helped to a chair, EMS was called. Per report, blood glucose was 40 at the scene. The patient was given D10 en route to [facility]. In the ER, the patient 's blood glucose was at or above 100. However, once blood glucose is normalized, the patient reported residual left-sided weakness. The patient had no residual effects from his prior strokes and stroke protocol was initiated. The patient received a CT head and CTA as above and was transferred to [facility]. Upon arrival to [facility], the patient was no longer hypoglycemic and reports that the left-sided weakness had improved. The patient still reported some left-sided sensory discrepancies to light touch, saying it felt more dull on the left side. Strength was appropriate in all extremities. Left lower extremity has history of prior knee surgery, which seemed to limit his strength. MRI brain was performed day after admission, results as above. The patient was discharged on his home medications. DISPOSITION: Stable. DISCHARGE INSTRUCTIONS: 1. Location: Home. 2. Diet: Heart healthy. 3. Activity: As tolerated. 4. Followup: Follow up with primary care provider within 2 weeks. Job ID: [id number] MTDD
--- NOTE | 2020-04-23 04:55 | PQF ---
CLINICAL DOCUMENTATION CLARIFICATION FORM: Dear : Guillermo Alex Date / Time: 04/23/2020 1204 Please exercise your independent, professional judgment in responding to the clarification form. Clinical indicators are provided on the bottom of this form for your review In your clinical opinion based on clinical findings below, can you please identify the etiology of Left sided weakness if due to: Please check appropriate box(es): [ ] Hypoglycemia [ ] Right ICA Stenosis [ ] Other diagnosis [ ] Unable to determine Physician Signature: Date/Time: For continuity of documentation, please document condition throughout progress notes and discharge summary. Thank You. To be completed by CDI/Coding staff for physician review: Present Clinical Indicators - Signs / Symptoms / Labs Results and Location in Medical Record [x] Glucose 93, POC Glucose 199; 129 Laboratory 04/19 [x] BP 114/70, Pulse 65, Resp 17, Temp 98.4 Vital signs 04/19 [x] MRI brain Impression: No acute process Imaging 04/20 Dr Leyva [x] Pt transfer for L sided weakness H&P p1 04/19 Dr Kincaid [x] Pt was seen with hypoglycemia earlier today with blood sugar was 40 per EMS H&P p1 04/19 Dr Kincaid [x] Deficits appear to be resolved, patient says he is at baseline, could be 2/ 2 hypoglycemia causing returns of old strokes sx H&P p4 04/19 Dr Kincaid [x] CTA preliminary read shows 50% R ICA stenosis PN p2 04/20 Dr Alex Present Risk Factors Results and Location in Medical Record [x] 69 year-old Male H&P p1 04/19 Dr Kincaid [x] CAD H&P p2 04/19 Dr Kincaid [x] HTN H&P p2 04/19 Dr Kincaid [x] Hx of CVA H&P p2 04/19 Dr Kincaid [x] DM H&P p2 04/19 Dr Kincaid [x] Hx of Colon Cancer H&P p2 04/19 Dr Kincaid [x] Smokers MJ and Cigarettes H&P p2 04/19 Dr Kincaid Present Treatments Results and Location in Medical Record [x] IVF NS 1L OCT 22 [x] IVF Lactated Ringers 1L OCT 22 [x] Insulin 2 units OCT 22 [x] Lovenox 40 mg SC OCT 22 [x] MRI brain Imaging 04/20 Dr Leyva [x] PT consult Consult 04/19 CDS/Traffic Manager Signature: Viridiana Sullivan Phone #: ext [phone] Date/Time: 04/23/2020 0458 This is a permanent part of the Medical Record [facility]
== END 2020-04-20 12:50 | disposition home or self-care (01) ==
LOC: ERS 12:58 → INTOOBSV 15:30 → 2SE 15:30
PROVIDERS: ADMIT Student in an Organized Health Care Education/Training Program; ATTEND Student in an Organized Health Care Education/Training Program
DX: E11.649 Type 2 diabetes mellitus with hypoglycemia without coma (principal); I10 Essential (primary) hypertension; I25.10 Atherosclerotic heart disease of native coronary artery without angina pectoris; E78.5 Hyperlipidemia, unspecified; F12.10 Cannabis abuse, uncomplicated; F41.0 Panic disorder [episodic paroxysmal anxiety]; F43.10 Post-traumatic stress disorder, unspecified; I65.21 Occlusion and stenosis of right carotid artery; F17.210 Nicotine dependence, cigarettes, uncomplicated; Z79.02 Long term (current) use of antithrombotics/antiplatelets; Z79.84 Long term (current) use of oral hypoglycemic drugs; Z79.899 Other long term (current) drug therapy; Z88.1 Allergy status to other antibiotic agents; Z88.2 Allergy status to sulfonamides; Z88.8 Allergy status to other drugs, medicaments and biological substances; Z86.73 Personal history of transient ischemic attack (TIA), and cerebral infarction without residual deficits; Z90.49 Acquired absence of other specified parts of digestive tract
CPT/HCPCS: 36415; 36416; 70551; 80048; 80061; 83036; 84443; 85027; 87635; 90471; 90732; 96374; G0009; J1650; J2765; U0003

== ENCOUNTER 2023-07-08 15:57 | Inpatient (IN) | payer OTHER ==
[2023-07-08] MEDS ORDERED: Ondansetron PF 4 MG/2 ML Vial IVP PRN (20:48)
[2023-07-08] MEDS ORDERED: Dextrose 5% in Water 1,000 ML IV PRN (20:49)
[2023-07-08] MEDS ORDERED: Dextrose 50% Abboject 50 ML SYRINGE SLOW IVP PRN (20:49)
[2023-07-08] MEDS ORDERED: HumaLOG 300 UNITS/3 ML VIAL SC PRN ×2 (20:49)
[2023-07-08] MEDS ORDERED: Glucagon 1 MG/ML KIT IM PRN (20:49)
[2023-07-08] MEDS ORDERED: Sodium Chloride 0.9% 1,000 ML IV SCH (21:00)
[2023-07-08] MEDS ORDERED: Ipratropium/Albuterol 3 ML NEB EZPAP PRN (21:14)
[2023-07-08] MEDS: Acetaminophen 325 MG TAB PO PRN (23:36)
[2023-07-08 23:43] VITALS: BMI 25.9
[2023-07-08] MEDS ORDERED: Vancomycin (BATCH) 1.75 GM in Premix 1 BAG IVPB SCH (23:59)
[2023-07-09 00:59] LABS: Lactic Acid 2.9 mmol/L (0.5-2.2)
[2023-07-09 01:48] LABS: #Eosinphils 0.4 thou/uL (0.0-0.7); #Neutrophils 5.5 thou/uL (1.40-6.50); %Basophils 0.4 % (0.0-1.0); %Eosinophils 4.1 % (0.0-10.0); %Lymphocytes 27.6 % (21.0-51.0); %Monocytes 10.1 % (0.0-10.0); %Neutrophils 57.5 % (42.0-75.0); Hematocrit 37.6 % (42.0-52.0); Hemoglobin 12.5 g/dL (14.0-18.0); Mean Corpuscular HGB CONC 33.2 g/dL (32.0-36.0); Mean Corpuscular Hemoglobin 29.1 pg (27.0-31.0); Mean Corpuscular Volume 87.6 fl (78.0-98.0); Mean Platelet Volume 8.4 fL (7.4-10.4); Platelet Count 392 10x3/uL (130-400); RBC Distribution Width 14.4 % (11.5-14.5); Red Blood Cell (RBC) Count 4.29 mill/uL (4.70-6.10); White Blood Cell (WBC) Count 9.6 10x3/uL (4.8-10.8)
[2023-07-09] MEDS ORDERED: Sodium Chloride 0.9% 1,000 ML IV SCH (02:00)
[2023-07-09 02:07] LABS: Lactic Acid 1.7 mmol/L (0.5-2.2)
[2023-07-09 02:11] LABS: Hemoglobin A1c 6.4 % (4.0-6.0)
[2023-07-09 02:28] LABS: Anion Gap 14 mmol/L (10-20); BUN (Urea Nitrogen) 8 mg/dL (8.4-25.7); Calc. Creatinine Clearance 91 mL/min (70-130); Carbon Dioxide 31 mmol/L (23-31); Chloride 96 mmol/L (98-107); Estimated GFR 93; Glucose 103 mg/dL (83-110); Potassium 4.1 mmol/L (3.5-5.1); Sodium 137 mmol/L (136-145)
[2023-07-09] MEDS ORDERED: Cefepime 1 GM in Sodium Chloride 0.9% 100 ML IVPB SCH (03:00)
[2023-07-09] MEDS: Nicotine 14 MG PATCH TD SCH (04:10)
[2023-07-09] MEDS: Ipratropium/Albuterol 3 ML NEB IPPB SCH ×3 (07:26→19:43)
[2023-07-09] MEDS: Vancomycin (BATCH) 1.25 GM in Premix 1 BAG IVPB SCH ×2 (12:03→23:20)
[2023-07-09] MEDS: Cefepime 2 GM in Sodium Chloride 0.9% 100 ML IVPB SCH (15:51)
[2023-07-09] MEDS: Atorvastatin Calcium 40 MG TAB PO SCH (20:01)
[2023-07-10] MEDS: Ipratropium/Albuterol 3 ML NEB IPPB SCH ×4 (01:50→19:10)
[2023-07-10] MEDS: Nicotine 14 MG PATCH TD SCH (02:17)
[2023-07-10] MEDS: Cefepime 2 GM in Sodium Chloride 0.9% 100 ML IVPB SCH ×2 (03:07→15:10)
[2023-07-10 05:06] LABS: #Basophils 0.1 thou/uL (0.0-0.2); #Eosinphils 0.4 thou/uL (0.0-0.7); #Monocytes 0.8 thou/uL (0.11-0.59); #Neutrophils 5.3 thou/uL (1.40-6.50); %Basophils 0.7 % (0.0-1.0); %Eosinophils 4.4 % (0.0-10.0); %Lymphocytes 23.9 % (21.0-51.0); %Monocytes 8.8 % (0.0-10.0); %Neutrophils 61.7 % (42.0-75.0); Hematocrit 38.1 % (42.0-52.0); Hemoglobin 12.6 g/dL (14.0-18.0); Mean Corpuscular HGB CONC 33.1 g/dL (32.0-36.0); Mean Corpuscular Hemoglobin 29.3 pg (27.0-31.0); Mean Corpuscular Volume 88.6 fl (78.0-98.0); Mean Platelet Volume 8.5 fL (7.4-10.4); Platelet Count 428 10x3/uL (130-400); RBC Distribution Width 14.6 % (11.5-14.5); White Blood Cell (WBC) Count 8.5 10x3/uL (4.8-10.8)
[2023-07-10 05:33] LABS: Anion Gap 12 mmol/L (10-20); BUN (Urea Nitrogen) 4 mg/dL (8.4-25.7); Calc. Creatinine Clearance 99 mL/min (70-130); Calcium 9.1 mg/dL (7.8-10.44); Carbon Dioxide 27 mmol/L (23-31); Chloride 101 mmol/L (98-107); Estimated GFR 95; Glucose 141 mg/dL (83-110); Potassium 4.1 mmol/L (3.5-5.1); Sodium 136 mmol/L (136-145)
[2023-07-10] MEDS: Aspirin Chewable 81 MG TAB PO SCH (11:00)
[2023-07-10] MEDS: Vancomycin (BATCH) 1.25 GM in Premix 1 BAG IVPB SCH (12:52)
[2023-07-10] MEDS: Atorvastatin Calcium 40 MG TAB PO SCH (22:12)
[2023-07-10] MEDS: Acetaminophen 325 MG TAB PO PRN (22:12)
[2023-07-11] MEDS: Vancomycin (BATCH) 1.25 GM in Premix 1 BAG IVPB SCH ×2 (00:04→12:10)
[2023-07-11] MEDS ORDERED: Ipratropium/Albuterol 3 ML NEB ONE (01:18)
[2023-07-11] MEDS: Ipratropium/Albuterol 3 ML NEB IPPB SCH ×4 (02:05→18:39)
[2023-07-11] MEDS: Nicotine 14 MG PATCH TD SCH (04:14)
[2023-07-11] MEDS: Cefepime 2 GM in Sodium Chloride 0.9% 100 ML IVPB SCH ×2 (04:15→15:34)
[2023-07-11 06:20] LABS: #Basophils 0.1 thou/uL (0.0-0.2); #Eosinphils 0.5 thou/uL (0.0-0.7); #Monocytes 0.8 thou/uL (0.11-0.59); #Neutrophils 5.3 thou/uL (1.40-6.50); %Basophils 0.7 % (0.0-1.0); %Eosinophils 5.6 % (0.0-10.0); %Lymphocytes 21.5 % (21.0-51.0); %Monocytes 9.5 % (0.0-10.0); %Neutrophils 62.3 % (42.0-75.0); Hematocrit 39.7 % (42.0-52.0); Hemoglobin 12.7 g/dL (14.0-18.0); Mean Corpuscular Hemoglobin 28.3 pg (27.0-31.0); Mean Corpuscular Volume 88.4 fl (78.0-98.0); Mean Platelet Volume 8.3 fL (7.4-10.4); Platelet Count 399 10x3/uL (130-400); RBC Distribution Width 14.6 % (11.5-14.5); Red Blood Cell (RBC) Count 4.49 mill/uL (4.70-6.10); White Blood Cell (WBC) Count 8.4 10x3/uL (4.8-10.8)
[2023-07-11 06:45] LABS: Anion Gap 12 mmol/L (10-20); BUN (Urea Nitrogen) 4 mg/dL (8.4-25.7); Calc. Creatinine Clearance 95 mL/min (70-130); Calcium 9.4 mg/dL (7.8-10.44); Carbon Dioxide 30 mmol/L (23-31); Chloride 102 mmol/L (98-107); Estimated GFR 94; Glucose 142 mg/dL (83-110); Potassium 4.5 mmol/L (3.5-5.1); Sodium 139 mmol/L (136-145)
[2023-07-11] MEDS: Aspirin Chewable 81 MG TAB PO SCH (09:09)
[2023-07-11] MEDS ORDERED: CEFAZOLIN 2 GM in Sodium Chloride 0.9% 100 ML IVPB SCH (10:00)
[2023-07-11] MEDS: Atorvastatin Calcium 40 MG TAB PO SCH (21:27)
[2023-07-12] MEDS: Vancomycin (BATCH) 1.25 GM in Premix 1 BAG IVPB SCH ×2 (00:32→14:10)
[2023-07-12] MEDS: Ipratropium/Albuterol 3 ML NEB IPPB SCH ×4 (00:38→19:00)
[2023-07-12] MEDS: Cefepime 2 GM in Sodium Chloride 0.9% 100 ML IVPB SCH ×2 (02:24→17:10)
[2023-07-12] MEDS: Nicotine 14 MG PATCH TD SCH (02:27)
[2023-07-12 04:17] LABS: #Basophils 0.1 thou/uL (0.0-0.2); #Eosinphils 0.4 thou/uL (0.0-0.7); #Monocytes 0.7 thou/uL (0.11-0.59); #Neutrophils 4.6 thou/uL (1.40-6.50); %Eosinophils 4.6 % (0.0-10.0); %Lymphocytes 24.9 % (21.0-51.0); %Monocytes 9.4 % (0.0-10.0); %Neutrophils 59.7 % (42.0-75.0); Hemoglobin 12.7 g/dL (14.0-18.0); Mean Corpuscular HGB CONC 32.6 g/dL (32.0-36.0); Mean Corpuscular Hemoglobin 28.8 pg (27.0-31.0); Mean Corpuscular Volume 88.4 fl (78.0-98.0); Mean Platelet Volume 8.3 fL (7.4-10.4); Platelet Count 398 10x3/uL (130-400); RBC Distribution Width 14.6 % (11.5-14.5); Red Blood Cell (RBC) Count 4.41 mill/uL (4.70-6.10); White Blood Cell (WBC) Count 7.8 10x3/uL (4.8-10.8)
[2023-07-12 04:36] LABS: Anion Gap 14 mmol/L (10-20); BUN (Urea Nitrogen) 5 mg/dL (8.4-25.7); Calc. Creatinine Clearance 102 mL/min (70-130); Calcium 9.1 mg/dL (7.8-10.44); Carbon Dioxide 26 mmol/L (23-31); Chloride 101 mmol/L (98-107); Estimated GFR 96; Glucose 128 mg/dL (83-110); Potassium 4.2 mmol/L (3.5-5.1); Sodium 137 mmol/L (136-145)
[2023-07-12] MEDS: Aspirin Chewable 81 MG TAB PO SCH (09:56)
[2023-07-12 13:01] LABS: Vancomycin, Trough 13.6 ug/mL
[2023-07-12] MEDS ORDERED: Lidocaine 1% (PF) 30 ML VIAL SC SCH (13:30)
[2023-07-12] MEDS: traMADol HCl 50 MG TAB PO PRN ×2 (17:59→23:49)
[2023-07-12] MEDS: Acetaminophen 325 MG TAB PO PRN (18:00)
[2023-07-12] MEDS: Atorvastatin Calcium 40 MG TAB PO SCH (20:31)
[2023-07-12] MEDS ORDERED: Ketorolac Tromethamine 30 MG/ML VIAL IVP SCH (23:45)
[2023-07-13] MEDS: Vancomycin (BATCH) 1.25 GM in Premix 1 BAG IVPB SCH ×2 (00:19→14:00)
[2023-07-13] MEDS: Ipratropium/Albuterol 3 ML NEB IPPB SCH ×3 (00:58→13:02)
[2023-07-13] MEDS: Nicotine 14 MG PATCH TD SCH ×2 (03:22→03:27)
[2023-07-13] MEDS: Cefepime 2 GM in Sodium Chloride 0.9% 100 ML IVPB SCH (03:22)
[2023-07-13 06:24] LABS: #Basophils 0.1 thou/uL (0.0-0.2); #Eosinphils 0.4 thou/uL (0.0-0.7); #Monocytes 0.7 thou/uL (0.11-0.59); #Neutrophils 3.7 thou/uL (1.40-6.50); %Eosinophils 5.8 % (0.0-10.0); %Lymphocytes 28.4 % (21.0-51.0); %Monocytes 10.7 % (0.0-10.0); %Neutrophils 53.8 % (42.0-75.0); Hematocrit 37.2 % (42.0-52.0); Hemoglobin 12.1 g/dL (14.0-18.0); Mean Corpuscular HGB CONC 32.5 g/dL (32.0-36.0); Mean Corpuscular Hemoglobin 29.2 pg (27.0-31.0); Mean Corpuscular Volume 89.6 fl (78.0-98.0); Mean Platelet Volume 8.5 fL (7.4-10.4); Platelet Count 406 10x3/uL (130-400); Red Blood Cell (RBC) Count 4.15 mill/uL (4.70-6.10); White Blood Cell (WBC) Count 6.9 10x3/uL (4.8-10.8)
[2023-07-13 06:51] LABS: Anion Gap 14 mmol/L (10-20); BUN (Urea Nitrogen) 9 mg/dL (8.4-25.7); Calc. Creatinine Clearance 95 mL/min (70-130); Carbon Dioxide 25 mmol/L (23-31); Chloride 104 mmol/L (98-107); Estimated GFR 94; Glucose 130 mg/dL (83-110); Potassium 4.3 mmol/L (3.5-5.1); Sodium 139 mmol/L (136-145)
[2023-07-13 07:25] VITALS: BP 160/89; TEMP 97.5
[2023-07-13] MEDS: Aspirin Chewable 81 MG TAB PO SCH (09:58)
== END 2023-07-13 13:02 | disposition home or self-care (01) | DRG 872 ==
LOC: SJJU 18:10 → OBSVTOIN 07-11 11:52
PROVIDERS: ADMIT Internal Medicine; ATTEND Internal Medicine
PROC: 3E03329 Introduction of Other Anti-infective into Peripheral Vein, Percutaneous Approach (ICD-10-PCS; 2023-07-11)
PROC: 0R9 Upper Joints, Drainage (ICD-10-PCS; principal; 2023-07-12)
DX: A41.9 Sepsis, unspecified organism (principal); L02.512 Cutaneous abscess of left hand; M00.9 Pyogenic arthritis, unspecified; J44.9 Chronic obstructive pulmonary disease, unspecified; E11.9 Type 2 diabetes mellitus without complications; I25.10 Atherosclerotic heart disease of native coronary artery without angina pectoris; I10 Essential (primary) hypertension; Z96.652 Presence of left artificial knee joint; Z90.49 Acquired absence of other specified parts of digestive tract; Z98.890 Other specified postprocedural states; F17.210 Nicotine dependence, cigarettes, uncomplicated; Z79.899 Other long term (current) drug therapy; Z79.82 Long term (current) use of aspirin; Z79.84 Long term (current) use of oral hypoglycemic drugs; Z88.2 Allergy status to sulfonamides; Z88.1 Allergy status to other antibiotic agents; Z88.8 Allergy status to other drugs, medicaments and biological substances; E78.5 Hyperlipidemia, unspecified
CPT/HCPCS: 36415; 36416; 80048; 80202; 83036; 83605; 85025; 87040; 94640; 96365; 96375; 96376; G0378; J0692; J1815; J1885; J2001; J3370; J3490; J7050; J7620